=== PATIENT | female | born 1985 | race Caucasian/White ===

== ENCOUNTER 2017-01-02 08:16 | Day surgery (SDC) | payer BC ==
[2017-01-02] MEDS ORDERED: LIDOCAINE 1% 5 ML SDV ONE (08:58)
[2017-01-02] MEDS ORDERED: LR 1,000 ML IV ONE (09:12)
[2017-01-02] MEDS ORDERED: ceFAZolin 2 GM/DEXTROSE 100 ML IV ONE (10:00)
[2017-01-02] MEDS ORDERED: SKIN ADHESIVE (DERMABOND) 1 EACH TP ONE (10:00)
[2017-01-02] MEDS ORDERED: BUPIVACAINE/EPI 0.5% 30 ML SDV ONE (10:00)
[2017-01-02] MEDS ORDERED: fentaNYL 100 MCG/2 ML INJ ONE ×2 (10:01→12:45)
[2017-01-02] MEDS ORDERED: PROPOFOL 200 MG/20 ML VIAL ONE ×2 (10:01)
[2017-01-02] MEDS ORDERED: MIDAZOLAM 2 MG/2 ML VIAL ONE (10:08)
[2017-01-02] MEDS ORDERED: SCOPOLAMINE HYDROBROMIDE 1.5 MG PATCH TD ONE (10:08)
[2017-01-02] MEDS ORDERED: ONDANSETRON 4 MG/2 ML VIAL ONE (11:04)
[2017-01-02] MEDS ORDERED: DEXAMETHASONE 4 MG/ML VIAL ONE (11:04)
[2017-01-02] MEDS ORDERED: LIDOCAINE 2% 100 MG/5 ML SYR IVP ONE (11:07)
[2017-01-02] MEDS ORDERED: ROCURONIUM 50 MG/5 ML VIAL ONE (11:07)
[2017-01-02] MEDS ORDERED: SUGAMMADEX SODIUM 200 MG/2 ML VIAL IVP ONE (12:07)
[2017-01-02] MEDS ORDERED: KETOROLAC 30 MG/1 ML SDV ONE (12:07)
[2017-01-02] MEDS ORDERED: HYDROCODONE/APAP 5/325 TAB ONE (13:38)
--- NOTE | 2017-01-03 11:00 | GOP ---
DATE OF OPERATION: 01/02/2017 SURGEON: Sim Gibbons MD [employer] INSPECTOR: Grisel Qureshi CFA. ANESTHESIA: General. PREOPERATIVE DIAGNOSIS: 1. Pelvic pain. 2. Dysmenorrhea. 3. Dyschezia. 4. Probable endometriosis. POSTOPERATIVE DIAGNOSIS: 1. Pelvic pain. 2. Dysmenorrhea. 3. Dyschezia. 4. Probable endometriosis. PROCEDURE PERFORMED: 1. Robotic excision of extensive endometriosis. 2. Bilateral ureterolysis. 3. Excision of rectal lesion. 4. Bilateral ovarian pexy. FINDINGS: SPECIMENS: 1. Pelvic peritoneum with endometriosis. 2. Rectal lesion. ESTIMATED BLOOD LOSS: Less than 20 mL. DESCRIPTION OF PROCEDURE: Yoly was taken to the operating room, where she was identified. General anesthesia was administered and found to be adequate. She was placed in the lithotomy position and prepared and draped in normal sterile fashion. A Hulka tenaculum was placed in the uterus for javier pulation. A Hayes catheter was then placed. A 1 cm infraumbilical incision was made with a scalpel. The Veress needle with the CO2 gas lung was advanced into the peritoneal cavity. The abdomen was then insufflated with carbon dioxide gas. Th e 12 mm trocar followed by the laparoscope was then inserted. The upper abdomen was unremarkable. There was no evidence of endometriosis on either diaphragm or the liver, gallbladder, stomach or sup erior margin of the spleen. Two lateral ports were placed on the right and 1 on the left under direct visualization. She then w as placed in Trendelenburg position, and the da Radha robot docked on the left side. The instrument s were then brought into the abdominal cavity under direct visualization. She had multiple lesions of endometriosis in the posterior cul-de-sac, bilateral ovarian fossas, some on the left anterior cu l-de-sac and left pelvic brim. These were of varied appearance. She had a lesion on the distal rec willard. Attention was 1st turned to the posterior cul-de-sac. The entire peritoneum from 1 uterosacral liga ment to the other and from the distal rectum to the cervix was completely undermined and excised to remove all endometriosis. She had a lesion on the distal rectum which was excised with the hot pearson rs. This extended approximately 50% into the muscularis. Attention was then turned to the left ovarian fossa. There was endometriosis on the left ovarian fo ssa extending all the way up to the ovary. The left ovary was adherent to the pelvic sidewall as we ll as some endometriosis. As a result, a left ureterolysis was required. The peritoneum at the pel tony brim was incised. The ureter was gently dissected free. The dissection was carried caudad all the way down to the bladder to separate the ureter from the overlying peritoneum and endometriosis a s well as it from the posterior aspect of the adherent ovary. Once this was accomplished , the ovary was gently dissected free and the endometriosis excised. The peritoneum overlying the p elvic sidewall with endometriosis was then completely excised. This was carried down all the way to the cervix and uterosacral ligament. The exact same procedure was performed on the patient's right side, also requiring a ureterolysis to safely excise all endometriosis. The lesions in the left anterior cul-de-sac were then excised as well as the left pelvic brim. All specimens were then removed. The patient had a complex cyst in t he left ovary which was removed. This had the appearance of a hemorrhagic cyst. The superficial le sions on both ovaries were then fulgurated. After the specimens were removed, a bilateral ovarian cystectomy was performed by suturing each ____ to its ipsilateral round ligament with rapidly absorbable 5-0 chromic. This was accomplished to try to eliminate some of her cyclic midcycle pelvic pain. Two sheets of Interceed were then elias jamar in the posterior cul-de-sac. The robot was then undocked. The fascia was closed with 0 Vicryl, the skin with 4-0 Monocryl and surgical adhesive. Anesthesia was reversed. The patient taken to P ACU awake, in stable condition. COMPLICATIONS: None. DISPOSITION: Patient stable to PACU. /[id number]/MODL
== END 2017-01-02 14:20 | disposition home or self-care (01) ==
LOC: FSGY 08:16
PROVIDERS: ATTEND Obstetrics & Gynecology
DX: N80.3 Endometriosis of pelvic peritoneum (principal); N80.0 Endometriosis of uterus; N80.1 Endometriosis of ovary; N94.6 Dysmenorrhea, unspecified; N83.201 Unspecified ovarian cyst, right side; Q51.810 Arcuate uterus; K59.00 Constipation, unspecified; D12.8 Benign neoplasm of rectum
CPT/HCPCS: 58660; C1765; J0690; J1100; J1885; J2001; J2250; J2405; J2704; J3010